=== PATIENT | female | born 1995 | race Hispanic/Latino ===

== ENCOUNTER 2022-06-27 02:30 | Emergency (ER) | payer OTHER ==
[~2022-06-27] VITALS: Ht 180.3 cm; Wt 94.5 kg
[2022-06-27] MEDS ORDERED: FLUT1BLS IH (02:44)
[2022-06-27] MEDS ORDERED: VENTAER INH (02:45)
[2022-06-27] MEDS ORDERED: NS 1,000 ML IV ONE (06:50)
[2022-06-27 07:21] LABS: BASO % 0.2 % (0.0-1.0); EOS # 0.1 10^3/uL (0.0-0.5); EOS % 0.6 % (0.0-3.0); HEMATOCRIT 39.8 % (36.0-47.0); HEMOGLOBIN 13.2 g/dl (12.0-15.5); LYMPH # 1.8 10^3/uL (1.5-5.0); LYMPH % 21.7 % (24.0-44.0); MEAN CORPUSCULAR HEMOGLOBIN 30.2 pg (27.0-33.0); MEAN CORPUSCULAR HGB CONC 33.2 g/dl (32.0-36.5); MEAN CORPUSCULAR VOLUME 91.1 fl (80.0-96.0); MONO # 0.7 10^3/uL (0.0-0.8); NEUTROPHILS # 5.7 10^3/uL (1.5-8.5); PLATELET COUNT, AUTOMATED 348 10^3/uL (150-450); RED BLOOD COUNT 4.37 10^6/uL (4.00-5.40); WHITE BLOOD COUNT 8.3 10^3/uL (4.0-10.0)
[2022-06-27] MEDS ORDERED: ISOVUE-370 76% 100ML VIAL As Ordered ONE (07:33)
[2022-06-27] MEDS ORDERED: CIPR-249 PO (08:27)
[2022-06-27 08:34] VITALS: BP 107/56
== END 2022-06-27 08:46 | disposition home or self-care (01) ==
LOC: M ED 02:30
DX: J18.9 Pneumonia, unspecified organism (principal); J47.9 Bronchiectasis, uncomplicated; Z79.52 Long term (current) use of systemic steroids; Z79.899 Other long term (current) drug therapy; Z91.010 Allergy to peanuts

== ENCOUNTER 2022-07-03 16:51 | Emergency (ER) | payer OTHER ==
[~2022-07-03] VITALS: Ht 180.3 cm; Wt 95.3 kg
[~2022-07-03 16:51] MED LIST: CIPR-249 PO; FLUT1BLS IH; VENTAER INH
[2022-07-03 16:52] VITALS: BP 113/58
[2022-07-03] MEDS ORDERED: KETOROLAC 30 MG/ML 1ML VIAL IV ONE (18:20)
[2022-07-03] MEDS ORDERED: ONDANSETRON 4MG 2ML VIAL IV ONE (18:20)
[2022-07-03 18:53] LABS: BASO % 0.2 % (0.0-1.0); HEMATOCRIT 42.7 % (36.0-47.0); HEMOGLOBIN 14.2 g/dl (12.0-15.5); LYMPH # 0.8 10^3/uL (1.5-5.0); LYMPH % 7.1 % (24.0-44.0); MEAN CORPUSCULAR HEMOGLOBIN 29.8 pg (27.0-33.0); MEAN CORPUSCULAR HGB CONC 33.3 g/dl (32.0-36.5); MEAN CORPUSCULAR VOLUME 89.5 fl (80.0-96.0); MONO # 0.6 10^3/uL (0.0-0.8); MONO % 5.6 % (2.0-8.0); NEUTROPHILS # 9.4 10^3/uL (1.5-8.5); NEUTROPHILS % 86.6 % (36.0-66.0); PLATELET COUNT, AUTOMATED 367 10^3/uL (150-450); RED BLOOD COUNT 4.77 10^6/uL (4.00-5.40); WHITE BLOOD COUNT 10.8 10^3/uL (4.0-10.0)
[2022-07-03 19:18] LABS: LIPASE 30 U/L (12-53)
[2022-07-03 19:20] LABS: ALKALINE PHOSPHATASE 157 U/L (46-116); ALT/SGPT 310 U/L (7.0-40); AST/SGOT 456 U/L (<34); BILIRUBIN,DIRECT 0.6 MG/DL (<0.4); BLOOD UREA NITROGEN 14 MG/DL (9-23); CALCIUM LEVEL 9.8 MG/DL (8.5-10.1); CARBON DIOXIDE LEVEL 26 MMOL/L (20-31); CHLORIDE LEVEL 104 MMOL/L (98-107); CREATININE FOR GFR 0.73 MG/DL (0.55-1.30); GLOMERULAR FILTRATION RATE > 60.0 (>60); GLUCOSE, FASTING 119 MG/DL (60-100); POTASSIUM SERUM 4.1 MMOL/L (3.5-5.1); SODIUM LEVEL 138 MMOL/L (136-145); TOTAL PROTEIN 7.2 G/DL (5.7-8.2)
[2022-07-03 19:36] LABS: MONO SCRN NEGATIVE (NEGATIVE)
[2022-07-03 20:01] LABS: HEPATITIS B SURFACE ANTIGEN NEGATIVE (NEGATIVE)
[2022-07-03 20:21] LABS: HEPATITIS B CORE ANTIBODY IGM NEGATIVE (NEGATIVE)
[2022-07-03 20:31] LABS: HEPATITIS C VIRUS ABY INDEX > 11.0 INDEX (<0.8)
== END 2022-07-03 21:45 | disposition home or self-care (01) ==
LOC: M ED 16:51
DX: R74.01 Elevation of levels of liver transaminase levels (principal); J45.909 Unspecified asthma, uncomplicated; Z91.010 Allergy to peanuts; Z79.52 Long term (current) use of systemic steroids; Z79.2 Long term (current) use of antibiotics; Z79.899 Other long term (current) drug therapy
CPT/HCPCS: 71046; 76705; 80048; 80076; 83690; 85025; 86308; 86705; 86709; 86803; 87340; 87522; 96374; 96375; 99284; J1885; J2405

== ENCOUNTER → 2022-08-16 | Outpatient (CLI) | payer OTHER | LOC: M CARPUL 09:01 | PROVIDERS: ATTEND Nurse Practitioner Family | DX: J45.30 Mild persistent asthma, uncomplicated (principal) | CPT/HCPCS: 85018; 88738; 94060; 94726; 94729; G0463 ==

== ENCOUNTER → 2022-09-21 | Outpatient (CLI) | payer OTHER | LOC: M PLAIMG 13:02 | PROVIDERS: ATTEND Nurse Practitioner Family | DX: R91.8 Other nonspecific abnormal finding of lung field (principal); J45.30 Mild persistent asthma, uncomplicated ==

== ENCOUNTER → 2022-11-21 | Outpatient (CLI) | payer OTHER ==
[2022-11-22 22:45] LABS: HEPATITIS B SURFACE ANTIBODY NEGATIVE (POSITIVE); HIV 1&2 SCREEN NEGATIVE (NEGATIVE)
[2022-11-24 23:07] LABS: HEPATITIS C VIRUS GENOTYPE 1a (.)
== END ==
LOC: M PLALAB 12:05
PROVIDERS: ATTEND Internal Medicine Infectious Disease
DX: B18.2 Chronic viral hepatitis C (principal)

== ENCOUNTER → 2023-11-06 | Outpatient (CLI) | payer OTHER ==
[2023-11-06 15:43] LABS: ALBUMIN 3.7 G/DL (3.2-5.2); BILIRUBIN,DIRECT 0.1 MG/DL (<0.4); BILIRUBIN,TOTAL 0.4 MG/DL (0.3-1.2); TOTAL PROTEIN 6.9 G/DL (5.7-8.2)
== END ==
LOC: M PLALAB 11:57
PROVIDERS: ATTEND Internal Medicine Infectious Disease
DX: B18.2 Chronic viral hepatitis C (principal)